=== PATIENT | female | born 1955 | race Caucasian/White ===

== ENCOUNTER → 2016-08-28 | Outpatient (CLI) | payer BC | LOC: MC.RAD 08:40 | DX: Z12.31 Encounter for screening mammogram for malignant neoplasm of breast (principal) ==

== ENCOUNTER → 2017-08-29 | Outpatient (CLI) | payer BC | LOC: MC.RAD 10:00 | DX: Z12.31 Encounter for screening mammogram for malignant neoplasm of breast (principal) ==

== ENCOUNTER → 2018-09-04 | Outpatient (CLI) | payer BC | LOC: MC.RAD 10:56 | DX: Z12.31 Encounter for screening mammogram for malignant neoplasm of breast (principal); N64.89 Other specified disorders of breast ==

== ENCOUNTER → 2018-09-18 | Outpatient (CLI) | payer BC | LOC: MC.RAD 12:57 | DX: N64.89 Other specified disorders of breast (principal) | CPT/HCPCS: G0279 ==

== ENCOUNTER → 2019-10-10 | Outpatient (CLI) | payer BC | LOC: MC.RAD 09-18 11:00 | DX: Z12.31 Encounter for screening mammogram for malignant neoplasm of breast (principal) ==

== ENCOUNTER → 2020-10-11 | Outpatient (CLI) | payer BC ==
[~2020-10-11] MED LIST: AMITRIPTYLINE H10 M1 PO; B-121000 MCG PO; BIOTIN10000 MC1 PO; CALCIUM 600MG+D1 TAB PO; COZAAR100 MG PO; CYMBALTA 30MG30 MG PO; FLEXERIL 1010 MG/TAB PO; HCTZ 25MG TAB25 MG PO; IRON TABLETS325 MG PO; MULTIVITAMIN200 MCG PO; PROLIA60 MG/ML SQ; SYNTHROID0.088 MG/T PO; THE MEDICINE S200 M2 PO; VOLTAREN GEL 1%1 TU TP; [UNRECOGNIZED DRUG - OTHER] PO
== END ==
LOC: MC.RAD 10:35
DX: Z12.31 Encounter for screening mammogram for malignant neoplasm of breast (principal)

== ENCOUNTER 2020-10-14 07:31 | Day surgery (SDC) | payer BC ==
[~2020-10-14] VITALS: Ht 157.5 cm; Wt 87.4 kg
[2020-10-14 08:03] VITALS: BP 140/71; PULSE 97; TEMP 97
[2020-10-14] MEDS ORDERED: CYMBALTA 30MG30 MG PO (08:12)
[2020-10-14] MEDS ORDERED: FLEXERIL 1010 MG/TAB PO (08:13)
[2020-10-14] MEDS ORDERED: SYNTHROID0.088 MG/T PO (08:13)
[2020-10-14] MEDS ORDERED: AMITRIPTYLINE H10 M1 PO (08:13)
[2020-10-14] MEDS ORDERED: COZAAR100 MG PO (08:14)
[2020-10-14] MEDS ORDERED: VOLTAREN GEL 1%1 TU TP (08:15)
[2020-10-14] MEDS ORDERED: PROLIA60 MG/ML SQ (08:15)
[2020-10-14] MEDS ORDERED: MULTIVITAMIN200 MCG PO (08:16)
[2020-10-14] MEDS ORDERED: B-121000 MCG PO (08:16)
[2020-10-14] MEDS ORDERED: CALCIUM 600MG+D1 TAB PO (08:17)
[2020-10-14] MEDS ORDERED: IRON TABLETS325 MG PO (08:18)
[2020-10-14] MEDS ORDERED: [UNRECOGNIZED DRUG - OTHER] PO (08:19)
[2020-10-14] MEDS ORDERED: BIOTIN10000 MC1 PO (08:19)
[2020-10-14] MEDS ORDERED: THE MEDICINE S200 M2 PO (08:20)
[2020-10-14] MEDS ORDERED: HCTZ 25MG TAB25 MG PO (08:21)
[2020-10-14 09:40] VITALS: TEMP 97.5
--- NOTE | 2020-10-14 09:40 | NUR ---
Pt returns from endo procedure. Pt ambulates from cart to recliner with RN assist. Monitors on and alarms set. Call light within reach. Report received from MELO Khan. Pt requesting muffin and water. Pt denies any pain or nausea. Pt alert and oriented. Vital sign machine not functioning properly. Seek out another machine.
[2020-10-14 10:05] VITALS: BP 113/55; PULSE 83
[2020-10-14 10:15] VITALS: BP 124/73; PULSE 91
--- NOTE | 2020-10-14 10:20 | NUR ---
Pt taking food and drink well. No complications stated.
[2020-10-14 10:30] VITALS: BP 127/40; PULSE 61
[2020-10-14 10:45] VITALS: BP 130/53; PULSE 102
--- NOTE | 2020-10-14 11:22 | NUR ---
Discharge instructions given to pt. All questions answered to her satisfaction. Handed to her are a thank you card, discharge instructions, diagnosis information, and a discharge med sheet.
--- NOTE | 2020-10-14 11:35 | NUR ---
Pt transferred out of hospital via wheelchair and MELO Castro assist, to private vehicle driven by family.
== END 2020-10-14 11:35 | disposition home or self-care (01) ==
LOC: SDCO 07:31
DX: Z12.11 Encounter for screening for malignant neoplasm of colon (principal); M81.0 Age-related osteoporosis without current pathological fracture; E03.9 Hypothyroidism, unspecified; N18.32 Chronic kidney disease, stage 3b; I12.9 Hypertensive chronic kidney disease with stage 1 through stage 4 chronic kidney disease, or unspecified chronic kidney disease; Z20.822 Contact with and (suspected) exposure to COVID-19; Z79.899 Other long term (current) drug therapy; Z68.35 Body mass index [BMI] 35.0-35.9, adult
CPT/HCPCS: J2704; J7030

== ENCOUNTER 2021-04-13 10:08 | Outpatient (CLI) | payer BC ==
[~2021-04-13] VITALS: Ht 157.5 cm; Wt 86.2 kg
[2021-04-13 10:29] VITALS: BP 122/73; PULSE 88; TEMP 98.4
== END 2021-04-13 10:36 | disposition home or self-care (01) ==
LOC: EUO 10:08
DX: M81.0 Age-related osteoporosis without current pathological fracture (principal)
CPT/HCPCS: J0897

== ENCOUNTER 2021-06-15 13:15 | Outpatient (RCR) | payer BC | END 2021-06-15 14:28 | disposition home or self-care (01) | LOC: MKS.ESL.PT 13:15 | DX: M25.511 Pain in right shoulder (principal) ==

== ENCOUNTER → 2021-10-25 | Outpatient (CLI) | payer BC | LOC: MC.RAD 11:20 | DX: Z12.31 Encounter for screening mammogram for malignant neoplasm of breast (principal) ==

== ENCOUNTER 2021-11-17 14:52 | Outpatient (CLI) | payer BC ==
[~2021-11-17] VITALS: Ht 157.5 cm; Wt 89.0 kg
[~2021-11-17 14:52] MED LIST changes: +COZAAR 50MG50 MG/TAB PO; -COZAAR100 MG PO
[2021-11-17 15:05] VITALS: BP 122/70; PULSE 98; TEMP 98.4
== END 2021-11-17 15:45 | disposition home or self-care (01) ==
LOC: EUO 14:52
DX: M81.0 Age-related osteoporosis without current pathological fracture (principal)
CPT/HCPCS: J0897

== ENCOUNTER → 2023-11-22 | Outpatient (CLI) | payer MEDICARE | LOC: MC.RAD 09:02 | DX: Z12.31 Encounter for screening mammogram for malignant neoplasm of breast (principal) ==